=== PATIENT | female | born 1990 | race African-American/Black ===

== ENCOUNTER 2017-12-23 13:23 | Inpatient (IN) | payer OTHER ==
[~2017-12-23] VITALS: Ht 167.6 cm; Wt 64.9 kg
[~2017-12-23 13:23] MED LIST: HYDROXYCHLOROQ200 M1 PO; KEFLEX500 MG PO; REGLAN 10 MG TA10 MG PO
[2017-12-23 13:31] VITALS: BP 108/66
[2017-12-23 14:03] LABS: HEMATOCRIT 32.5 % (37.0-47.0); HEMOGLOBIN 10.5 gm/dL (12.0-15.0); MCH 24.7 pg (26.0-34.0); MCHC 32.2 g/dL (28.0-37.0); MCV 76.7 fL (80.0-100.0); PLATELET COUNT 173 thou/uL (150-400); RBC 4.24 mil/uL (4.20-5.00); RDW 16.5 % (10.5-14.5)
[2017-12-23 14:10] LABS: CALCIUM 9.3 mg/dL (8.5-10.1); POTASSIUM 3.8 mmol/L (3.5-5.1)
[2017-12-23 14:17] LABS: ALBUMIN 3.2 g/dL (3.4-5.0); TOTAL BILIRUBIN 0.3 mg/dL (<0.1-1.0)
[2017-12-23 14:36] LABS: ABSOLUTE NEUTROPHILS 1.4 thou/uL (1.4-8.2); ANISOCYTOSIS 2+; ATYPICAL LYMPHS 2 %; NUCLEATED RBCS 1 /100WBC
[2017-12-23 14:37] LABS: POIKILOCYTOSIS 1+; POLYCHROMASIA OCCASIONAL
[2017-12-23 14:38] LABS: OVALOCYTES FEW
[2017-12-23 14:39] LABS: HYPOCHROMASIA 1+; MICROCYTES 2+; SCHISTOCYTES OCCASIONAL
[2017-12-23 15:09] LABS: URINE BILIRUBIN NEGATIVE (Negative); URINE BLOOD NEGATIVE (Negative); URINE CLARITY CLEAR; URINE COLOR YELLOW; URINE GLUCOSE-RANDOM* NEGATIVE (Negative); URINE KETONES NEGATIVE (Negative); URINE LEUKOCYTES-REFLEX NEGATIVE (Negative); URINE NITRITE-REFLEX NEGATIVE (Negative); URINE PROTEIN (DIPSTICK) 3+ (Negative); URINE SPECIFIC GRAVITY >= 1.030 (1.005-1.035); URINE UROBILINOGEN 0.2 E.U./dl (0.2-1.0)
[2017-12-23 15:33] LABS: SQUAMOUS 4-10 Moderate /LPF (0-3)
[2017-12-23 15:34] LABS: CASTS None Seen /LPF (None Seen); MUCUS 4-6 Moderate strn/LPF (None Seen)
[2017-12-23 15:35] LABS: CRYSTALS None Seen /LPF (None Seen); URINE RBC 0-2 Rare /HPF (0-2); URINE WBC-REFLEX 0-5 Rare /HPF (0-5)
[2017-12-23 15:36] LABS: BACTERIA-REFLEX 1-9 Few /HPF (None Seen)
[2017-12-23 16:52] VITALS: BP 108/66
[2017-12-23 17:17] VITALS: BP 90/49
[2017-12-23 17:36] VITALS: BP 97/67
[2017-12-23 19:58] VITALS: BP 84/59
[2017-12-24 00:08] VITALS: BP 98/67
[2017-12-24 04:59] VITALS: BP 105/75
[2017-12-24 08:18] VITALS: BP 110/78
[2017-12-24 16:10] VITALS: BP 109/77
[2017-12-24 19:50] VITALS: BP 102/69
[2017-12-25 04:54] VITALS: BP 99/63
[2017-12-25 06:17] LABS: % SATURATION 42 % (20-39); IRON 76 ug/dL (50-170); TIBC 182 ug/dL (250-450)
[2017-12-25 08:00] VITALS: BP 110/73
[2017-12-25] MEDS ORDERED: DIFLUCAN200 MG PO (11:07)
[2017-12-25] MEDS ORDERED: LEVAQUIN 250 M250 MG PO (11:08)
[2017-12-25] MEDS ORDERED: HYDROXYCHLOROQ200 M1 PO (11:08)
[2017-12-25 16:00] VITALS: BP 105/75
[2017-12-25 18:32] VITALS: BP 105/75
== END 2017-12-25 19:01 | disposition home or self-care (01) | DRG 177 ==
LOC: ER 13:23 → 4W 16:41 → EROBS 16:41 → 4W 17:22
PROVIDERS: Internal Medicine Gastroenterology; Physician Assistant
DX: J69.0 Pneumonitis due to inhalation of food and vomit (principal); E43 Unspecified severe protein-calorie malnutrition; B37.81 Candidal esophagitis; F12.90 Cannabis use, unspecified, uncomplicated; M32.9 Systemic lupus erythematosus, unspecified; D50.9 Iron deficiency anemia, unspecified; Z88.2 Allergy status to sulfonamides; Z88.8 Allergy status to other drugs, medicaments and biological substances; Z91.040 Latex allergy status; Z91.011 Allergy to milk products; Z68.23 Body mass index [BMI] 23.0-23.9, adult
CPT/HCPCS: 10045

== ENCOUNTER 2018-01-17 21:16 | Inpatient (IN) | payer OTHER ==
[~2018-01-17] VITALS: Ht 167.6 cm; Wt 58.5 kg
[~2018-01-17 21:16] MED LIST changes: +DIFLUCAN200 MG PO; +LEVAQUIN 250 M250 MG PO
[2018-01-17 21:31] VITALS: BP 104/70
[2018-01-17] MEDS ORDERED: NOHOMEMEDICATIONS (21:39)
[2018-01-17 23:02] LABS: HEMATOCRIT 30.1 % (37.0-47.0); HEMOGLOBIN 9.5 gm/dL (12.0-15.0); MCH 24.1 pg (26.0-34.0); MCHC 31.6 g/dL (28.0-37.0); MCV 76.4 fL (80.0-100.0); PLATELET COUNT 153 thou/uL (150-400); RBC 3.94 mil/uL (4.20-5.00); RDW 16.5 % (10.5-14.5); WBC 3.4 thou/uL (4.0-11.0)
[2018-01-17 23:09] LABS: CALCIUM 8.6 mg/dL (8.5-10.1); POTASSIUM 3.6 mmol/L (3.5-5.1)
[2018-01-17 23:12] LABS: URINE BILIRUBIN NEGATIVE (Negative); URINE BLOOD NEGATIVE (Negative); URINE CLARITY CLEAR; URINE COLOR YELLOW; URINE GLUCOSE-RANDOM* NEGATIVE (Negative); URINE KETONES NEGATIVE (Negative); URINE LEUKOCYTES-REFLEX NEGATIVE (Negative); URINE NITRITE-REFLEX NEGATIVE (Negative); URINE PROTEIN (DIPSTICK) 2+ (Negative); URINE UROBILINOGEN 0.2 E.U./dl (0.2-1.0)
[2018-01-17 23:20] LABS: CASTS None Seen /LPF (None Seen); CRYSTALS None Seen /LPF (None Seen); MUCUS None Seen strn/LPF (None Seen); SQUAMOUS >10 Many /LPF (0-3); URINE RBC None Seen /HPF (0-2); URINE WBC-REFLEX None Seen /HPF (0-5)
[2018-01-17 23:30] LABS: ABSOLUTE NEUTROPHILS 1.8 thou/uL (1.4-8.2); ANISOCYTOSIS 1+; METAMYELOCYTES 1 %
[2018-01-17 23:31] LABS: OVALOCYTES 2+
[2018-01-17 23:32] LABS: HYPOCHROMASIA 1+
[2018-01-18] VITALS (8 sets, daily range): BP systolic 95–114; BP diastolic 53–78
[2018-01-18 06:53] LABS: HEMATOCRIT 31.1 % (37.0-47.0); HEMOGLOBIN 9.8 gm/dL (12.0-15.0); MCH 24.3 pg (26.0-34.0); MCHC 31.7 g/dL (28.0-37.0); MCV 76.8 fL (80.0-100.0); RBC 4.05 mil/uL (4.20-5.00); RDW 16.5 % (10.5-14.5); WBC 3.9 thou/uL (4.0-11.0)
[2018-01-18 07:04] LABS: CALCIUM 8.5 mg/dL (8.5-10.1); CREATININE 0.9 mg/dL (0.6-1.0); POTASSIUM 4.2 mmol/L (3.5-5.1)
[2018-01-19 04:05] VITALS: BP 102/66
[2018-01-19 07:07] VITALS: BP 96/46
[2018-01-19 19:52] VITALS: BP 87/31
[2018-01-19 23:05] VITALS: BP 105/59
[2018-01-20 03:28] VITALS: BP 89/60
[2018-01-20 08:20] VITALS: BP 81/40
[2018-01-20] MEDS ORDERED: LEVAQUIN 500 M500 M2 PO (10:10)
[2018-01-20] MEDS ORDERED: OXYCODONE HCL 55 MG PO (10:10)
[2018-01-20] MEDS ORDERED: NYSTATIN100000 UNI SW&SWALLOW (10:10)
[2018-01-20] MEDS ORDERED: PREDNISONE 10 M10 MG PO (10:11)
[2018-01-20 10:18] VITALS: BP 81/40
== END 2018-01-20 13:54 | disposition home or self-care (01) | DRG 871 ==
LOC: ER 21:16 → 4E 01-18 00:34 → EROBS 01-18 00:34 → 4E 01-18 01:17 → ENTRNSPT 01-20 12:51 → EDTRNSPTSTS 01-20 12:56 → 4E 01-20 13:54
PROVIDERS: Emergency Medicine; Nurse Practitioner Family
DX: A41.9 Sepsis, unspecified organism (principal); J18.9 Pneumonia, unspecified organism; B37.81 Candidal esophagitis; M32.9 Systemic lupus erythematosus, unspecified; Z88.8 Allergy status to other drugs, medicaments and biological substances; Z91.018 Allergy to other foods; F12.90 Cannabis use, unspecified, uncomplicated; R21 Rash and other nonspecific skin eruption; Z88.2 Allergy status to sulfonamides; Z91.030 Bee allergy status; Z91.040 Latex allergy status
CPT/HCPCS: 10084

== ENCOUNTER 2018-06-05 14:39 | Emergency (ER) | payer OTHER ==
[~2018-06-05] VITALS: Ht 165.1 cm; Wt 59.0 kg
[~2018-06-05 14:39] MED LIST changes: +LEVAQUIN 500 M500 M2 PO; +NOHOMEMEDICATIONS; +NYSTATIN100000 UNI SW&SWALLOW; +OXYCODONE HCL 55 MG PO; +PREDNISONE 10 M10 MG PO; +PROMETH-CODEIN 65 ML PO; +ZPAK PO
[2018-06-05 14:42] VITALS: BP 93/54
[2018-06-05] MEDS ORDERED: OXYCODONE HCL 55 MG PO (14:48)
[2018-06-05] MEDS ORDERED: GABAPENTIN 100100 MG PO (14:49)
[2018-06-05] MEDS ORDERED: NORCO 5-325 TA1 EACH PO (15:30)
[2018-06-05] MEDS ORDERED: CLEOCIN HCL150 MG PO (15:30)
== END 2018-06-05 15:51 | disposition home or self-care (01) ==
LOC: ER 14:39
DX: L03.012 Cellulitis of left finger (principal); M32.9 Systemic lupus erythematosus, unspecified; D50.9 Iron deficiency anemia, unspecified; Z88.1 Allergy status to other antibiotic agents; Z91.040 Latex allergy status; Z91.018 Allergy to other foods